=== PATIENT | male | born 1980 | race Caucasian/White ===

== ENCOUNTER 2023-03-01 15:56 | Outpatient (REF) | payer OTHER, SELFPAY ==
[2023-03-01 17:56] LABS: Appearance Urine Clear; Color Urine Yellow; Glucose Urine UA Negative (Negative); Leukocyte Esterase Urine Negative (Negative); Nitrite Urine Negative (Negative); PH 5.5 (5.0-9.0); Specific Gravity - Urine 1.025 (1.005-1.025); Urine Blood Negative (Negative); Urine Ketones Negative (Negative); Urine Protein Negative (Neg-Trace)
[2023-03-01 19:36] LABS: Estimated Average Glucose 117 mg/dL; Hemoglobin A1c % 5.7 %
[2023-03-01 20:07] LABS: TSH reflex Free T4 1.19 uIU/mL (0.32-4.0)
[2023-03-01 20:09] LABS: Alanine Aminotransferase 52 U/L (0-40); Albumin Level 4.4 g/dL (3.5-5.0); Alkaline Phosphatase 56 U/L (39-117); Anion Gap 14 (12-20); Aspartate Amino Transferase 36 U/L (5-37); Bilirubin Total 1.2 mg/dL (0.0-1.0); Blood Urea Nitrogen 11 mg/dL (9-16); Calcium 9.6 mg/dL (8.4-10.2); Carbon Dioxide 24 mmol/L (22-29); Chloride 105 mmol/L (96-108); Cholesterol 160 mg/dL; Estimated Glomerular Filt Rate > 60; Glucose Fasting 73 mg/dL (60-99); HDL Cholesterol 31 mg/dL; LDL Cholesterol Calculated 98 mg/dl; Potassium 4.4 mmol/L (3.3-5.1); Sodium 139 mmol/L (135-145); Total Protein 7.8 g/dL (6.5-8.0); Triglycerides 157 mg/dL
[2023-03-07 21:28] LABS: Testosterone, Free 96.7 pg/mL (35.0-155.0); Testosterone, Total 403 ng/dL (250-1100)
== END 2023-03-01 15:57 | disposition home or self-care (01) ==
LOC: HO.LAB 15:56
PROVIDERS: PCP Family Medicine; Visit Provider Family Medicine
DX: Z00.00 Encounter for general adult medical examination without abnormal findings (principal); R73.01 Impaired fasting glucose; R79.89 Other specified abnormal findings of blood chemistry
CPT/HCPCS: 36415; 80053; 80061; 81003; 83036; 84402; 84403; 84443

== ENCOUNTER 2024-11-30 09:45 | Outpatient (RCR) | payer OTHER, SELFPAY ==
--- NOTE | 2024-11-30 14:21 | HO.PHP ---
PHP staff member faxed over a referral for OP therapy through [facility] for Vishal Luna and is awaiting on the appointment date and time.
--- NOTE | 2024-11-30 14:32 | PC.NURSE ---
Patient told this board writer that he did not think this was the program for him. He stated he was not told what this program is about. He also stated that he can not be in the program if he is not able to use his phone. He stated, It is his constitutional right to use his phone. Patient reportedly was using his phone during group and staff asked him not to use his phone in group and if he needed to use his phone he could leave the group. I told Vishal that he could use his phone while in the program however we ask people to refrain from using their phones while in the group. I also explained to him what the program was about and encouraged him to at least attend the program for a few days to get a sense of how it works. He again stated he did not think this was the program for him. He did not want to continue with the nursing assessment. I asked Dr. Martinez to f/u with patient before he leaves the program. Dr. Martinez met with the patient and Migdalia met with him as well regarding d/c.
--- NOTE | 2024-11-30 14:55 | P.HPPSP_ITS ---
[facility] Date of Service: 11/30/24 Chief Complaint: depression Sources of Information: patient interviewed, chart reviewed and crisis/core team assessment reviewed Meds/Allergies Meds Home Medications ?Medication ?Instructions ?Recorded ?Confirmed ?Type penicillin V potassium 500 mg 500 mg PO TID 08/13/22 History tablet Allergies Allergies Allergy/AdvReac Type Severity Reaction Status Date / Time No Known Allergies Allergy Verified 08/13/22 15:20 Assessment & Plan Assessment & Plan (1) Chronic post-traumatic stress disorder (PTSD): Status: Acute Code(s): F43.12 - Post-traumatic stress disorder, chronic (2) Psychotic disorder with delusions: Status: Acute Code(s): F29 - Unspecified psychosis not due to a substance or known physiological condition (3) Social anxiety disorder: Status: Acute Code(s): F40.10 - Social phobia, unspecified (4) Depression, major, recurrent, moderate: Status: Acute Code(s): F33.1 - Major depressive disorder, recurrent, moderate Plan Admit to [facility] Patient advocating discharge from [facility] at this time, feels he does not have the mental fortitude VS not obtained continue other regular medications? Routine lab work, EKG, UDS not ordered [facility] reviewed Patient discharged, per patient request, after groups today Patient educated on: diagnosis and medication risk/benefits Informed Consent: understands Reason for continued partial hosp. stay Substantial Risk for: inability to function and rapid decompensation Certification I certify that partial hospital treatment is medically necessary due to the symptoms and problems resulting from the patient's mental illness and the failure to treat the patient at the partial hospital level of care would likely result in the patient requiring inpatient psychiatric care which could not be prevented at a less intensive level of care. Time Spent With Patient Time: Total time managing care of this patient today _90___ minutes.
--- NOTE | 2024-12-02 10:21 | HO.PHP ---
PHP staff member received the appointment date and time for Vishal's OP therapy appointment: 0:00 AM - 11:00 AM [facility] Adult Comprehensive Assessment IN PERSON? Prog: Outpatient Site:? [address] [place] [address] [place] [phone] Staff: EVELINE HARRIS
== END 2024-11-30 23:59 | disposition home or self-care (01) ==
LOC: HO.PHPA 09:45
PROVIDERS: Visit Provider Psychiatry & Neurology Psychiatry
DX: F43.12 Post-traumatic stress disorder, chronic (principal); F29 Unspecified psychosis not due to a substance or known physiological condition; F40.10 Social phobia, unspecified; F33.1 Major depressive disorder, recurrent, moderate
CPT/HCPCS: 90791; 90853

== ENCOUNTER → 2024-11-30 09:45 | Outpatient (BNV) | payer OTHER, SELFPAY | PROVIDERS: Visit Provider Psychiatry & Neurology Psychiatry | DX: F43.12 Post-traumatic stress disorder, chronic (principal); F29 Unspecified psychosis not due to a substance or known physiological condition; F40.10 Social phobia, unspecified; F33.1 Major depressive disorder, recurrent, moderate | CPT/HCPCS: 90792 ==